=== PATIENT | male | born 1995 | race Caucasian/White ===

== ENCOUNTER 2018-03-22 07:04 | Emergency (ER) | payer SELFPAY, OTHER | END 2018-03-22 07:50 | disposition left against medical advice (07) | LOC: FTE 07:50 | DX: Z53.21 Procedure and treatment not carried out due to patient leaving prior to being seen by health care provider (principal) ==

== ENCOUNTER 2018-08-04 19:07 | Emergency (ER) | payer MEDICAID | END 2018-08-04 20:29 | disposition home or self-care (01) | LOC: FTE 19:07 | DX: L03.114 Cellulitis of left upper limb (principal); F17.210 Nicotine dependence, cigarettes, uncomplicated | CPT/HCPCS: 99282; Z7502 ==

== ENCOUNTER 2019-01-28 19:02 | Emergency (ER) | payer SELFPAY, MEDICAID | END 2019-01-28 19:51 | disposition left against medical advice (07) | LOC: E/R 19:02 | DX: Z53.21 Procedure and treatment not carried out due to patient leaving prior to being seen by health care provider (principal) ==